=== PATIENT | male | born 1980 | race African-American/Black ===

== ENCOUNTER 2022-12-01 21:41 | Emergency (ER) | payer OTHER, MEDICAID ==
[~2022-12-01] VITALS: Ht 175.3 cm; Wt 100.0 kg
[2022-12-02 01:50] VITALS: BP 110/69
== END 2022-12-02 01:50 | disposition home or self-care (01) ==
LOC: ER 21:41
DX: F10.229 Alcohol dependence with intoxication, unspecified (principal); Y90.0 Blood alcohol level of less than 20 mg/100 ml
CPT/HCPCS: 99283